=== PATIENT | female | born 1960 | race Hispanic/Latino ===

== ENCOUNTER → 2018-03-16 | Outpatient (CLI) | payer OTHER, MEDICARE ==
[~2018-03-16] MED LIST: CALC-322 PO; CHOL400C9 PO; DULO60CA63 PO; ESOM40CA PO; FURO20TA4 PO; HYDR4TAB56 PO; LEVO50 PO; LISI1TAB11 PO; PARO10TA71 PO; PRAV10TA39 PO; TIMO.25OS OD; TRAV5DRO OP; VITAMIN B6 PO; [UNRECOGNIZED DRUG - OTHER] OU
== END | disposition home or self-care (01) ==
LOC: RAH 13:46
PROVIDERS: ATTEND Family Medicine
DX: R06.02 Shortness of breath (principal); M79.89 Other specified soft tissue disorders; R79.1 Abnormal coagulation profile; K21.9 Gastro-esophageal reflux disease without esophagitis
CPT/HCPCS: 71046; 78580; A9540

== ENCOUNTER 2019-12-20 15:58 | Inpatient (IN) | payer OTHER, MEDICARE ==
[~2019-12-20] VITALS: Ht 160 cm; Wt 107.2 kg
[~2019-12-20 15:58] MED LIST changes: -DULO60CA63 PO; +DULO60CA64 PO; -LISI1TAB11 PO; +LISI1TAB51 PO
[2019-12-20] MEDS ORDERED: SODIUM CHLORIDE 0.9% 1000ML 1,000 ML IV ONE (16:27)
[2019-12-20] MEDS ORDERED: ZINC SULFATE 220 CAPSULE ONE (16:27)
[2019-12-20] MEDS ORDERED: DEXAMETHASONE SOD PHOSPHATE 10MG/ML 1ML VIAL ONE (16:27)
[2019-12-20] MEDS ORDERED: DOXYCYCLINE 100MG+NS 250ML 250 ML IV ONE (16:28)
[2019-12-20 16:37] LABS: BASOPHILS % (AUTO) 0.1 % (0.0-5.0); EOSINOPHILS % (AUTO) 2.3 % (0.0-8.0); HEMATOCRIT 43.5 % (36-48); LYMPHOCYTES % (AUTO) 22.1 % (21.0-51.0); MEAN CORPUSCULAR HEMOGLOBIN 29.2 pg (27.0-33.0); MEAN CORPUSCULAR HGB CONC 32.9 g/dL (32.0-36.0); MONOCYTES % (AUTO) 7.7 % (3.0-13.0); NEUTROPHILS % (AUTO) 67.4 % (40.0-77.0); PLATELET COUNT (AUTO) 256 K/uL (130-400); RED BLOOD CELL COUNT(AUTO) 4.89 MIL/uL (4.00-5.50); RED CELL DISTRIBUTION WIDTH 13.5 % (11.0-15.5); WHITE BLOOD COUNT (AUTO) 7.4 K/uL (4.8-10.8)
[2019-12-20 16:47] LABS: INR 0.94 (0.85-1.15); PARTIAL THROMBOPLASTIN TIME 32.6 SEC (26.3-35.5); PROTHROMBIN TIME 10.2 SEC (9.6-11.6)
[2019-12-20 16:50] LABS: CARBON DIOXIDE 32 mmol/L (21-32); CHLORIDE 95 mmol/L (101-111); CREATININE 0.3 mg/dL (0.5-1.5); GLOMERULAR FILTR. RATE CALC 241 mL/min (>60); GLUCOSE,RANDOM 169 mg/dL (70-105); POTASSIUM 3.6 mmol/L (3.5-5.1); SODIUM SERUM 137 mmol/L (136-145); UREA NITROGEN, BLOOD 12 mg/dL (7-18)
[2019-12-20 17:01] LABS: ALANINE AMINOTRANSFERASE 111 U/L (12-78); ASPARTATE AMINOTRANSFERASE 72 U/L (10-37); BILIRUBIN,TOTAL 0.5 mg/dL (0.2-1.0); CREATINE KINASE, TOTAL 61 U/L (21-232); MYOGLOBIN 27 ng/mL (10-92); TOTAL PROTEIN, SERUM 8.2 g/dL (6.0-8.3); TROPONIN I < 0.04 ng/mL (0.00-0.06)
[2019-12-20 18:06] LABS: APPEARANCE,URINE Clear (CLEAR); BILIRUBIN,URINE Negative (NEGATIVE); COLOR,URINE Yellow (YELLOW); GLUCOSE, URINE (UA) Negative (NEGATIVE); KETONES,URINE Negative (NEGATIVE); LEUKOCYTE ESTERASE ,URINE Negative (NEGATIVE); NITRATE,URINE Negative (NEGATIVE); OCCULT BLOOD,URINE Negative (NEGATIVE); PROTEIN,URINE POS 2+ mg/dL (NEGATIVE)
[2019-12-20 18:17] LABS: BACTERIA,URINE Rare /HPF (None Seen); RBC,URINE 0-1 /HPF (0-1); SQUAMOUS EPITHELIAL CELL,UR Rare /HPF (0-2); TRANSITIONAL EPI CELLS,URINE Rare /HPF (None Seen); WBC,URINE 0-1 /HPF (0-1)
[2019-12-20] MEDS ORDERED: HEPARIN SODIUM 5000UNIT/ML 1ML VIAL ONE (20:51)
[2019-12-20] MEDS ORDERED: FAMOTIDINE/PF 20 MG/2 ML VIAL IV ONE (20:51)
[2019-12-21] MEDS ORDERED: METF-444 PO (01:35)
[2019-12-21] MEDS ORDERED: GLUCAGON 1MG KIT 1 MG ML IM PRN (03:30)
[2019-12-21] MEDS ORDERED: DEXTROSE 50%-WATER 50 ML DISP.SYRIN IV PRN (03:30)
--- NOTE | 2019-12-21 03:49 | NUR ---
received report from kathleen er nurse, assumed care, pt aox4, up adlib ,went bathroom, pt belongins a leather shoulder bag with $180 scherer $100x1 and $20 x4 and pt will keep bag, pt also had medication reconciled medication and informed pt to call family and sent it home or we will keep in pharmacy, pt say she'll call in the morning, admission assessment done, shift assessment done, iv patent saline lock clean dry and intact, 12 cc done, safety maintained, bed in lowest position, call griffin in reached, care plan done, education done, safety maintained.
[2019-12-21] MEDS: INSULIN R PO SS1 SQ SCH ×4 (05:32→21:00)
[2019-12-21 05:48] VITALS: BP 119/49
[2019-12-21 06:02] LABS: MEAN CORPUSCULAR HEMOGLOBIN 29.3 pg (27.0-33.0); MEAN CORPUSCULAR HGB CONC 33.1 g/dL (32.0-36.0); MEAN CORPUSCULAR VOLUME 88.4 fL (79-99); RED BLOOD CELL COUNT(AUTO) 4.75 MIL/uL (4.00-5.50); RED CELL DISTRIBUTION WIDTH 13.3 % (11.0-15.5)
[2019-12-21 06:16] LABS: ALBUMIN 2.6 g/dL (3.5-5.0); BILIRUBIN,TOTAL 0.3 mg/dL (0.2-1.0); CREATININE 0.6 mg/dL (0.5-1.5); POTASSIUM 3.7 mmol/L (3.5-5.1); TOTAL PROTEIN, SERUM 7.5 g/dL (6.0-8.3)
[2019-12-21 07:30] VITALS: BP 136/69
[2019-12-21] MEDS: DEXAMETHASONE 4 MG TAB PO SCH (08:21)
[2019-12-21] MEDS: FAMOTIDINE 20MG TAB 20 MG TAB PO SCH ×2 (08:21→21:22)
[2019-12-21] MEDS ORDERED: HEPARIN SODIUM 5000UNIT/ML 1ML VIAL SQ SCH (09:00)
[2019-12-21 11:00] VITALS: BP 139/67
[2019-12-21] MEDS ORDERED: ALPRAZOLAM 0.25 MG TABLET PO PRN (11:45)
[2019-12-21] MEDS ORDERED: ONDANSETRON HCL 4 MG/2 ML VIAL IVP PRN (11:45)
[2019-12-21] MEDS: PHARMACY COMMUNICATION***REMDESIVIR ORDER MISC SCH (11:45)
[2019-12-21] MEDS ORDERED: LOPERAMIDE 1 MG/7.5 ML UDCUP PO PRN (11:45)
[2019-12-21] MEDS ORDERED: HYDRALAZINE HCL 20 MG/ML VIAL IV PRN (11:45)
[2019-12-21] MEDS: FUROSEMIDE 10 MG/ML 4ML VIAL IV SCH ×2 (13:09→23:42)
--- NOTE | 2019-12-21 15:55 | NUR ---
[id number] received telephone consent from Lion Sung [phone] for IM Letter, I faxed IM Letter to [phone].(Patient is in [place] area,did not answer phone)
[2019-12-21 16:00] VITALS: BP 129/69
--- NOTE | 2019-12-21 17:56 | NUR ---
SPOKE TO PATIENTS SON VIA PHONE FOR DC PLANNING, AND GOT CORRECT NUBMER FOR PATIENTS PHONE. FAXING TO GET UPDATED. PT LVIES WITH SPOUSE, HOME SAFE/ACCESSIBLE, HAS SHOWER CHAIR, STAIRS OUT SIDE, USES NO DME, DISABLED [facility] 2012 FOR BACK PAIN, SPOUSE DRIVES TO APPOINTMENT, DCP HOME SON STATED PATIENT IS ADDICTED TO [facility]DROM[facility]PH[facility] AND NEEDS TO HAVE IT- HAS TOLD FAMILY IT HAS NOT BEEN STARTED, SON STATES PATIENT HAS ALL HER MEDS IN THE ROOM, NOT SURE WHY IT WAS NOT ADDED. STATES PATIENT ADDICTED TO IT FOR MANY YEARS AND IS AFRAID SHE WILL HAVE WITHDRAWALS. CALL TO IDRIS GONZALEZ , ORDER RECD AND RELAYED OT JINNY REED RN
[2019-12-21] MEDS ORDERED: NON-FORMULARY MEDICATION 1 EACH (Paroxetine HCl 10 MG) PO SCH (21:00)
[2019-12-21] MEDS ORDERED: CALCIUM CARBONATE 500 MG PO SCH (21:00)
[2019-12-21] MEDS ORDERED: ENOXAPARIN SODIUM 0.5 MG/KG EACH SQ SCH (21:00)
[2019-12-21] MEDS ORDERED: NON-FORMULARY MEDICATION 1 EACH (Pravastatin Sodium 10 MG) PO SCH (21:00)
[2019-12-21 21:02] VITALS: BP 145/70
[2019-12-21] MEDS: LATANOPROST 2.5 ML DROPS OP SCH (21:13)
[2019-12-21] MEDS: HYDROCODONE/ACETAMINOPHEN 5/325 MG TAB PO PRN (21:21)
[2019-12-21] MEDS: SIMVASTATIN 10 MG TABLET PO SCH (21:22)
[2019-12-21] MEDS: PAROXETINE HCL 20 MG TABLET PO SCH (21:22)
[2019-12-22 01:06] VITALS: BP 118/43
[2019-12-22 03:41] LABS: ABG BASE EXCESS 6.4 mmol/L (-2.0-3.0); ABG HCO3 30.2 mmol/L (21.0-28.0); ABG OXYGEN SATURATION 90.1 % (95.0-99.0); ABG PCO2 40 mmHg (32-45)
[2019-12-22] MEDS: PHARMACY COMMUNICATION***REMDESIVIR ORDER MISC SCH (03:45)
[2019-12-22 05:56] LABS: HEMATOCRIT 42.5 % (36-48); LYMPHOCYTES % (AUTO) 18.8 % (21.0-51.0); MEAN CORPUSCULAR HEMOGLOBIN 29.1 pg (27.0-33.0); MEAN CORPUSCULAR HGB CONC 33.2 g/dL (32.0-36.0); MEAN CORPUSCULAR VOLUME 87.8 fL (79-99); MONOCYTES % (AUTO) 7.6 % (3.0-13.0); NEUTROPHILS % (AUTO) 73.2 % (40.0-77.0); PLATELET COUNT (AUTO) 325 K/uL (130-400); RED BLOOD CELL COUNT(AUTO) 4.84 MIL/uL (4.00-5.50); RED CELL DISTRIBUTION WIDTH 13.2 % (11.0-15.5); WHITE BLOOD COUNT (AUTO) 13.2 K/uL (4.8-10.8)
[2019-12-22 06:23] LABS: BILIRUBIN,DIRECT 0.1 mg/dL (0.0-0.3); BILIRUBIN,TOTAL 0.4 mg/dL (0.2-1.0); CREATINE KINASE, TOTAL 44 U/L (21-232)
[2019-12-22 06:24] LABS: ALANINE AMINOTRANSFERASE 65 U/L (12-78); ALBUMIN 2.9 g/dL (3.5-5.0); ASPARTATE AMINOTRANSFERASE 40 U/L (10-37); LACTATE DEHYDROGENASE 259 U/L (81-234); TOTAL PROTEIN, SERUM 7.7 g/dL (6.0-8.3)
[2019-12-22] MEDS: LEVOTHYROXINE 50 MCG TABLET PO SCH (06:36)
[2019-12-22] MEDS: INSULIN R PO SS1 SQ SCH ×4 (06:36→22:37)
[2019-12-22 06:39] VITALS: BP 160/65
[2019-12-22] MEDS ORDERED: CHOLECALCIFEROL 400 UNIT PO SCH (09:00)
[2019-12-22] MEDS ORDERED: NON-FORMULARY MEDICATION 1 EACH (Lisinopril/Hydrochlorothiazide (Lisinopril-Hctz 20-12.5 m PO SCH (09:00)
[2019-12-22 09:16] VITALS: BP 143/64
[2019-12-22] MEDS: HYDROCODONE/ACETAMINOPHEN 5/325 MG TAB PO PRN (09:20)
[2019-12-22] MEDS: CALCIUM 600 + VITAMIN D 400 TABLET PO SCH (09:20)
[2019-12-22] MEDS: FAMOTIDINE 20MG TAB 20 MG TAB PO SCH ×2 (09:21→22:30)
[2019-12-22] MEDS: DEXAMETHASONE 4 MG TAB PO SCH (09:21)
[2019-12-22] MEDS: HYDROCHLOROTHIAZIDE 25 MG TABLET PO SCH (09:21)
[2019-12-22] MEDS: ACETAMINOPHEN 325 MG TAB PO PRN (09:22)
[2019-12-22] MEDS: LISINOPRIL 20 MG TABLET PO SCH (09:26)
[2019-12-22] MEDS: ENOXAPARIN SODIUM 60 MG/0.6 ML SQ SCH ×2 (09:31→22:33)
[2019-12-22 12:42] VITALS: BP 108/29
[2019-12-22] MEDS: FUROSEMIDE 10 MG/ML 4ML VIAL IV SCH ×2 (12:47→22:33)
[2019-12-22 19:00] VITALS: BP 128/58
[2019-12-22 19:29] VITALS: BP 119/57
[2019-12-22] MEDS: MORPHINE SULFATE 2 MG/ML 1ML SYG IVP PRN (19:41)
[2019-12-22] MEDS: PAROXETINE HCL 20 MG TABLET PO SCH (21:00)
[2019-12-22] MEDS: LATANOPROST 2.5 ML DROPS OP SCH (21:00)
[2019-12-22] MEDS: SIMVASTATIN 10 MG TABLET PO SCH (22:31)
[2019-12-23] VITALS: BP 108/43
[2019-12-23] MEDS: MORPHINE SULFATE 2 MG/ML 1ML SYG IVP PRN (02:05)
[2019-12-23 04:00] VITALS: BP 132/72
[2019-12-23 05:15] LABS: HEMATOCRIT 43.2 % (36-48); MEAN CORPUSCULAR HGB CONC 33.3 g/dL (32.0-36.0); MEAN CORPUSCULAR VOLUME 87.1 fL (79-99); RED BLOOD CELL COUNT(AUTO) 4.96 MIL/uL (4.00-5.50); RED CELL DISTRIBUTION WIDTH 13.3 % (11.0-15.5)
[2019-12-23 05:33] LABS: ALBUMIN 2.9 g/dL (3.5-5.0); BILIRUBIN,TOTAL 0.5 mg/dL (0.2-1.0); CREATININE 0.9 mg/dL (0.5-1.5); MAGNESIUM 2.1 mg/dL (1.80-2.40); PHOSPHORUS 4.2 mg/dL (2.5-4.9); POTASSIUM 3.1 mmol/L (3.5-5.1); TOTAL PROTEIN, SERUM 8.1 g/dL (6.0-8.3)
[2019-12-23] MEDS: LEVOTHYROXINE 50 MCG TABLET PO SCH (06:25)
[2019-12-23] MEDS: INSULIN R PO SS1 SQ SCH ×4 (06:26→20:27)
[2019-12-23 08:06] VITALS: BP 134/67
[2019-12-23] MEDS: HYDROCHLOROTHIAZIDE 25 MG TABLET PO SCH (08:30)
[2019-12-23] MEDS: CALCIUM 600 + VITAMIN D 400 TABLET PO SCH (08:30)
[2019-12-23] MEDS: DEXAMETHASONE 4 MG TAB PO SCH (08:30)
[2019-12-23] MEDS: FAMOTIDINE 20MG TAB 20 MG TAB PO SCH ×2 (08:30→20:22)
[2019-12-23] MEDS: LISINOPRIL 20 MG TABLET PO SCH (08:30)
[2019-12-23] MEDS: ENOXAPARIN SODIUM 60 MG/0.6 ML SQ SCH ×2 (08:32→20:26)
[2019-12-23] MEDS: HYDROCODONE/ACETAMINOPHEN 5/325 MG TAB PO PRN ×2 (08:32→18:17)
--- NOTE | 2019-12-23 10:01 | NUR ---
PT CONSENT Convalescent plasma consent translated in Swiss and consent obtained by communication manager Victor. All questions answered and concerns addressed. Consent placed in chart.
[2019-12-23] MEDS: PHARMACY COMMUNICATION***REMDESIVIR ORDER MISC SCH ×4 (11:45→19:45)
[2019-12-23 12:13] VITALS: BP 135/78
[2019-12-23] MEDS: FUROSEMIDE 10 MG/ML 4ML VIAL IV SCH (12:16)
[2019-12-23] MEDS: ACETAMINOPHEN 325 MG TAB PO PRN (13:06)
[2019-12-23 16:43] VITALS: BP 145/82
--- NOTE | 2019-12-23 18:56 | NUR ---
Plasma 1835: 2nd bag of plasma completed, pt tolerated well. Pt denies any CP, SOB, or any other complaints. Pt A&Ox3, VSS, RR even and unlabored, airway intact.
[2019-12-23 19:00] VITALS: BP 118/64
[2019-12-23] MEDS: LATANOPROST 2.5 ML DROPS OP SCH (20:21)
[2019-12-23] MEDS: SIMVASTATIN 10 MG TABLET PO SCH (20:23)
[2019-12-23] MEDS: PAROXETINE HCL 20 MG TABLET PO SCH (20:24)
[2019-12-23] MEDS ORDERED: POTASSIUM CHLORIDE 20MEQ/100ML 100 ML IV PRN (23:30)
--- NOTE | 2019-12-23 23:55 | NUR ---
NEW ORDERS PATIENT POTASSIUM LEVEL 3.1, REPORTED TO TIMI GALO (HUSSAIN) WITH ORDER TO INITIATE POTASSIUM ORAL PROTOCOL. INSTRUCTED TO ADMINISTER IV DOSE OF LASIX 40 MG IV ORDERED.
[2019-12-24] VITALS (7 sets, daily range): BP systolic 108–138; BP diastolic 47–75
[2019-12-24] MEDS ORDERED: LIDOCAINE HCL-MPF 1% 2ML VIAL IV PRN (00:15)
[2019-12-24] MEDS ORDERED: POTASSIUM CHLORIDE 20 MEQ ERTAB PO PRN ×2 (00:15→01:45)
[2019-12-24] MEDS ORDERED: POTASSIUM CHLORIDE 20MEQ/100ML 100 ML IV PRN ×2 (00:15→01:45)
[2019-12-24] MEDS ORDERED: POTASSIUM CHLORIDE 10% ELIXIR 20 MEQ/15 ML UDCUP PO PRN (00:15)
[2019-12-24] MEDS ORDERED: POTASSIUM CHLORIDE 10% ELIXIR 20 MEQ/15 ML UDCUP ONE (00:56)
[2019-12-24] MEDS: FUROSEMIDE 10 MG/ML 4ML VIAL IV SCH ×3 (01:18→23:06)
[2019-12-24] MEDS: MORPHINE SULFATE 2 MG/ML 1ML SYG IVP PRN ×2 (02:33→21:53)
[2019-12-24] MEDS: PHARMACY COMMUNICATION***REMDESIVIR ORDER MISC SCH ×3 (03:45→19:45)
[2019-12-24] MEDS: POTASSIUM CHLORIDE 10% ELIXIR 20 MEQ/15 ML UDCUP PO PRN ×2 (04:51→07:03)
[2019-12-24 05:30] LABS: BASOPHILS % (AUTO) 0.2 % (0.0-5.0); HEMATOCRIT 41.5 % (36-48); LYMPHOCYTES % (AUTO) 23.9 % (21.0-51.0); MEAN CORPUSCULAR HEMOGLOBIN 28.8 pg (27.0-33.0); MEAN CORPUSCULAR VOLUME 87.4 fL (79-99); MONOCYTES % (AUTO) 8.4 % (3.0-13.0); NEUTROPHILS % (AUTO) 65.6 % (40.0-77.0); PLATELET COUNT (AUTO) 325 K/uL (130-400); RED BLOOD CELL COUNT(AUTO) 4.75 MIL/uL (4.00-5.50); WHITE BLOOD COUNT (AUTO) 12.9 K/uL (4.8-10.8)
[2019-12-24 05:54] LABS: BILIRUBIN,TOTAL 0.6 mg/dL (0.2-1.0); CREATININE 0.8 mg/dL (0.5-1.5); MAGNESIUM 2.3 mg/dL (1.80-2.40); PHOSPHORUS 3.5 mg/dL (2.5-4.9); POTASSIUM 3.3 mmol/L (3.5-5.1); TOTAL PROTEIN, SERUM 7.9 g/dL (6.0-8.3)
[2019-12-24] MEDS: LEVOTHYROXINE 50 MCG TABLET PO SCH (05:58)
[2019-12-24] MEDS: HYDROCODONE/ACETAMINOPHEN 5/325 MG TAB PO PRN ×2 (06:04→12:49)
[2019-12-24] MEDS: INSULIN R PO SS1 SQ SCH ×4 (07:01→20:28)
[2019-12-24] MEDS: CALCIUM 600 + VITAMIN D 400 TABLET PO SCH (08:28)
[2019-12-24] MEDS: HYDROCHLOROTHIAZIDE 25 MG TABLET PO SCH (08:29)
[2019-12-24] MEDS: DEXAMETHASONE 4 MG TAB PO SCH (08:29)
[2019-12-24] MEDS: LISINOPRIL 20 MG TABLET PO SCH (08:29)
[2019-12-24] MEDS: FAMOTIDINE 20MG TAB 20 MG TAB PO SCH ×2 (08:29→20:30)
[2019-12-24] MEDS: ENOXAPARIN SODIUM 60 MG/0.6 ML SQ SCH ×2 (08:33→20:29)
[2019-12-24 09:12] LABS: ABG BASE EXCESS 5.8 mmol/L (-2.0-3.0); ABG HCO3 28.6 mmol/L (21.0-28.0); ABG OXYGEN SATURATION 95.3 % (95.0-99.0); ABG PCO2 36 mmHg (32-45)
[2019-12-24] MEDS ORDERED: METHADONE HCL 10 MG TABLET PO PRN (15:00)
[2019-12-24] MEDS: LATANOPROST 2.5 ML DROPS OP SCH (20:23)
[2019-12-24] MEDS: PAROXETINE HCL 20 MG TABLET PO SCH (20:28)
[2019-12-24] MEDS: SIMVASTATIN 10 MG TABLET PO SCH (20:30)
[2019-12-25] MEDS: PHARMACY COMMUNICATION***REMDESIVIR ORDER MISC SCH ×2 (03:24→11:45)
[2019-12-25 03:28] LABS: ABG BASE EXCESS 6.6 mmol/L (-2.0-3.0); ABG HCO3 30.6 mmol/L (21.0-28.0); ABG OXYGEN SATURATION 93.8 % (95.0-99.0); ABG PCO2 41 mmHg (32-45)
[2019-12-25 03:46] VITALS: BP 136/71
[2019-12-25] MEDS: INSULIN R PO SS1 SQ SCH ×3 (06:12→16:30)
[2019-12-25] MEDS: LEVOTHYROXINE 50 MCG TABLET PO SCH (06:18)
[2019-12-25 09:06] VITALS: BP 124/53
[2019-12-25] MEDS: CALCIUM 600 + VITAMIN D 400 TABLET PO SCH (10:11)
[2019-12-25] MEDS: HYDROCHLOROTHIAZIDE 25 MG TABLET PO SCH (10:12)
[2019-12-25] MEDS: FAMOTIDINE 20MG TAB 20 MG TAB PO SCH (10:12)
[2019-12-25] MEDS: DEXAMETHASONE 4 MG TAB PO SCH (10:12)
[2019-12-25] MEDS: ENOXAPARIN SODIUM 60 MG/0.6 ML SQ SCH (10:13)
[2019-12-25] MEDS: LISINOPRIL 20 MG TABLET PO SCH (10:13)
[2019-12-25] MEDS: HYDROCODONE/ACETAMINOPHEN 5/325 MG TAB PO PRN (10:15)
[2019-12-25 12:00] VITALS: BP 115/39
[2019-12-25] MEDS: FUROSEMIDE 10 MG/ML 4ML VIAL IV SCH (13:09)
[2019-12-25] MEDS ORDERED: DEXA6TAB PO (15:28)
[2019-12-25 16:00] VITALS: BP 107/75
--- NOTE | 2019-12-25 17:44 | NUR ---
HOME O2 Received call from primary nurse Sophie, states pt will be dc home and needs home O2. Spoke w pt via phone, consent obtained for any in network DME provider. Consent also obtained for [facility] O[facility] lending program. Home O2 form printed to nurses station on 2D. Nurse Sophie to assist in obtaining signatures. RT Man called and informed of need for O2 concentrator and tank. verbalizes understanding. Man to provide primary nurse with serial numbers. CM to work on ordering home O2 for pt.
--- NOTE | 2019-12-25 18:55 | NUR ---
O2 Teaching 1830: RT at bedside to educate pt on use of O2 tank and concentrator. Pt verbalizes understanding. 1855: Pt discharged via wheelchair to family. Educated to return hospital equipment when home O2 tank and concentrator arrive.
== END 2019-12-25 18:44 | disposition home or self-care (01) | DRG 177 ==
LOC: EDH 15:58 → EDHIP 20:15 → INTOOBSV 20:15 → OBSVTOIN 20:15 → 4AH 12-21 00:52 → OBSVTOIN 12-21 17:40 → 2DH 12-22 14:22
PROVIDERS: ADMIT Internal Medicine Critical Care Medicine; ATTEND Internal Medicine Critical Care Medicine
PROC: XW13325 Transfusion of Convalescent Plasma (Nonautologous) into Peripheral Vein, Percutaneous Approach, New Technology Group 5 (ICD-10-PCS; principal; 2019-12-23)
DX: U07.1 COVID-19 (principal); J12.9 Viral pneumonia, unspecified; F19.20 Other psychoactive substance dependence, uncomplicated; E78.5 Hyperlipidemia, unspecified; I10 Essential (primary) hypertension; E11.9 Type 2 diabetes mellitus without complications; H40.9 Unspecified glaucoma; E03.9 Hypothyroidism, unspecified; F41.9 Anxiety disorder, unspecified; F32.9 Major depressive disorder, single episode, unspecified; G89.29 Other chronic pain; Z88.0 Allergy status to penicillin; Z88.5 Allergy status to narcotic agent; Z90.710 Acquired absence of both cervix and uterus; Z90.49 Acquired absence of other specified parts of digestive tract; Z79.84 Long term (current) use of oral hypoglycemic drugs; Z84.89 Family history of other specified conditions
CPT/HCPCS: 36415; 36430; 36600; 71045; 80053; 80076; 81001; 82550; 82728; 82803; 82948; 83605; 83615; 83735; 83874; 84100; 84145; 84484; 85025; 85027; 85378; 85610; 85730; 86140; 86850; 86900; 86901; 86927; 87040; 87088; 93005; 94760; 99291; G0378; J1100; J1644; J1650; J1815; J1940; J3490; J7030; J8540

== ENCOUNTER → 2020-08-11 | Outpatient (CLI) | payer OTHER, MEDICARE ==
[~2020-08-11] MED LIST changes: +DEXA6TAB PO; +METF-444 PO
== END | disposition home or self-care (01) ==
LOC: RAH 13:40
PROVIDERS: ATTEND Internal Medicine
DX: M43.26 Fusion of spine, lumbar region (principal)
CPT/HCPCS: 72100

== ENCOUNTER → 2020-12-11 | Outpatient (CLI) | payer OTHER, MEDICARE | END | disposition home or self-care (01) | LOC: RAH 11-30 10:00 | PROVIDERS: ATTEND Internal Medicine | DX: Z09 Encounter for follow-up examination after completed treatment for conditions other than malignant neoplasm (principal); I87.2 Venous insufficiency (chronic) (peripheral); R06.02 Shortness of breath | CPT/HCPCS: 93306; 93356 ==

== ENCOUNTER → 2021-08-27 | Outpatient (CLI) | payer OTHER, MEDICARE ==
[~2021-08-27] VITALS: Ht 160 cm; Wt 103.4 kg
[~2021-08-27] MED LIST changes: +REGADENOSON 0.4 MG/5 ML PF SYG IVP SCH
== END | disposition home or self-care (01) ==
LOC: SHCH 11:00
PROVIDERS: ATTEND Internal Medicine
DX: R06.2 Wheezing (principal); R06.02 Shortness of breath
CPT/HCPCS: 78452; 93017; 96374; A9500 ×2; J2785

== ENCOUNTER → 2021-08-29 | Outpatient (CLI) | payer OTHER, MEDICARE ==
[~2021-08-29] MED LIST changes: -REGADENOSON 0.4 MG/5 ML PF SYG IVP SCH
== END | disposition home or self-care (01) ==
LOC: SHCH 16:00
PROVIDERS: ATTEND Internal Medicine
DX: R06.2 Wheezing (principal)
CPT/HCPCS: 93306

== ENCOUNTER → 2024-05-17 | Outpatient (CLI) | payer OTHER ==
[~2024-05-17] MED LIST changes: +APIX2.5T PO; +BRIM5DRO OU; -CALC-322 PO; +CELE100 PO; -CHOL400C9 PO; -DEXA6TAB PO; -FURO20TA4 PO; +MELO-106 PO; -PARO10TA71 PO; -PRAV10TA39 PO; -TIMO.25OS OD; -TRAV5DRO OP; +TRAV5DRO OU; -VITAMIN B6 PO; -[UNRECOGNIZED DRUG - OTHER] OU
--- NOTE | 2024-05-17 15:09 | HMCIMG ---
CT CORONARY CALCIFICATION SCORING: Anatomic images were reviewed. The calcium score is being generated and reported separately. This report is for the visualized anatomy only. Visualized portions of the lungs are clear. Hilar and mediastinal structures appear normal. Osseous structures are unremarkable. Impression: 1. Negative noncardiac anatomic findings. 2. The calcium score is 69.4 consistent with a mild degree of calcified plaque. This is just below 75th percentile for a patient this age. CT was performed with one or more following dose reduction techniques: automated exposure control, adjustment of the mA and kv according to patient's size, or use of a iterative reconstruction technique.
== END | disposition home or self-care (01) ==
LOC: RAH 14:02
PROVIDERS: ATTEND Internal Medicine Cardiovascular Disease
DX: Z13.6 Encounter for screening for cardiovascular disorders (principal)
CPT/HCPCS: 75571

== ENCOUNTER → 2024-12-29 | Outpatient (CLI) | payer OTHER ==
--- NOTE | 2024-12-29 21:05 | HMCIMG ---
EXAM: US Abdomen complete CLINICAL HISTORY: 75-year-old female. History of cholecystectomy. Rule out AAA. TECHNIQUE: Complete abdominal ultrasound with grayscale and Doppler evaluation. COMPARISON: None provided. FINDINGS: LIVER: Measures 15.5 cm. Coarse, echogenic hepatic parenchyma with lobulated contour, compatible with hepatocellular disease/cirrhosis. Evidence of recanalized umbilical vein. No focal hepatic mass. Cirrhotic-appearing liver with recanalized umbilical vein, suggesting portal hypertension. Trace perihepatic free fluid. Trace perihepatic ascites. GALLBLADDER: Surgically absent. COMMON BILE DUCT: Measures 2 mm. Within normal limits. PANCREAS: Unremarkable. KIDNEYS: Right Kidney: Measures 9.5 x 4.8 x 4.8 cm. Preserved cortical echogenicity and corticomedullary differentiation. No hydronephrosis. Left Kidney: Measures 9.2 x 3.7 x 4.9 cm. Normal cortical echogenicity. No hydronephrosis. SPLEEN: Measures 15.3 x 6.6 x 5.8 cm. Enlarged, consistent with splenomegaly. AORTA: Proximal 2.9 cm, mid 2.2 cm, distal 2.0 cm. No aneurysm. No evidence of abdominal aortic aneurysm. IVC: Patent. STOMACH AND BOWEL: Reducible hernia in RUQ anterior abdominal wall measuring approximately 3.2 x 1.5 x 2.4 cm, without evidence of incarceration. Reducible right upper quadrant abdominal wall hernia without incarceration. IMPRESSION: 1. Cirrhotic-appearing liver with recanalized umbilical vein, suggesting portal hypertension. 2. Splenomegaly. 3. Trace perihepatic ascites. 4. Reducible right upper quadrant abdominal wall hernia without incarceration. 5. No evidence of abdominal aortic aneurysm. /[place]
--- NOTE | 2024-12-31 12:37 | HMCIMG ---
EXAMINATION: CT Thoracic Spine without intravenous contrast CLINICAL HISTORY: Mid back pain. Polyosteoarthritis. TECHNIQUE: Axial CT of the thoracic spine without intravenous contrast. Multiplanar reformations were generated and reviewed. CONTRAST: No intravenous contrast. COMPARISON: None provided. FINDINGS ALIGNMENT: Normal alignment. No dislocation. LEVEL?JOHNSON ANATOMY AND DEGENERATIVE CHANGES * T4?5: Moderate right foraminal narrowing secondary to facet spurring. The central canal is patent without stenosis. NThe spur is impinging right T4 nerve root. * T5?6: No significant canal or foraminal narrowing. Mild anterior spondylotic change present. * T6?7: Disc height loss with calcification. The anterior bridging osteophyte (extending from T6 to T11) is evident. Central canal remains open; foramina are unremarkable. * T7?8: Disc height loss with calcification. Continuation of the anterior bridging osteophyte. No canal or foraminal compromise. * T8?9, T9?10, T10?11: Persistent anterior bridging osteophyte. No central canal stenosis or foraminal narrowing identified. * T11?12: No bridging osteophyte; spinal canal and foramina are normal. BONES: Diffuse moderate osteoporotic appearance of the vertebral bodies. No acute fracture or aggressive osseous lesion is identified. SOFT TISSUES: No abnormal prevertebral soft?tissue swelling is identified. IMPRESSION 1. No acute fracture or dislocation. 2. Moderate right T4?5 foraminal narrowing due to facet spurring; central canal remains patent. The spur is impinging right T4 nerve root. 3. 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 4. Disc height loss with calcification at T6?7 and T7?8. 5. Diffuse moderate osteoporotic appearance of the vertebral bodies. /[place]
== END | disposition home or self-care (01) ==
LOC: RAH 12:34
PROVIDERS: ATTEND Family Medicine
DX: M46.04 Spinal enthesopathy, thoracic region (principal); M48.04 Spinal stenosis, thoracic region; M54.6 Pain in thoracic spine; M15.9 Polyosteoarthritis, unspecified; R29.890 Loss of height; M25.78 Osteophyte, vertebrae; M48.8X4 Other specified spondylopathies, thoracic region
CPT/HCPCS: 72125; 72128